=== PATIENT | male | born 1995 | race Caucasian/White ===

== ENCOUNTER → 2016-07-31 | Outpatient (CLI) | payer OTHER ==
--- NOTE | 2016-07-31 10:33 | KCIC ---
Three views right foot Indication: Right foot pain and bruising after injury Comparison: None Findings: There is no fracture or dislocation. There is no periosteal reaction or focal bone lesion. The joint spaces are well-maintained. The soft tissues are unremarkable. Impression: Unremarkable exam of the right foot . Electronically signed by: Cruzito Paniagua MD (07/31/2016 10:30 AM)
== END | disposition home or self-care (01) ==
LOC: KCIC 09:10
PROVIDERS: ATTEND Nurse Practitioner Family
DX: M25.571 Pain in right ankle and joints of right foot (principal)
CPT/HCPCS: 73630